=== PATIENT | female | born 1985 | race Two or more races ===

== ENCOUNTER 2025-03-07 09:12 | Day surgery (SDC) | payer MEDICAID ==
[2025-02-27 11:52] LABS: Hematocrit 36.2 % (36.0-46.0); Hemoglobin 12.0 g/dL (12.2-16.2); Mean Corpuscular Hemoglobin 28.7 pg (28.0-32.0); Mean Corpuscular Volume 87.1 fL (80.0-100.0); Nucleated Red Blood Cells % 0.0 %
[2025-02-27 11:58] LABS: Urine Protein, UAD Negative (Negative)
[2025-02-27 12:11] LABS: INR 1.03 (0.9-1.15); Partial Thromboplastin Time 29.2 SEC (24.5-34.5); Prothrombin Time 10.9 sec (9.3-11.8)
[2025-02-27 12:14] LABS: Alanine Aminotransferase 14 U/L (7-40); Albumin 4.3 g/dL (3.2-4.8); Alkaline Phosphatase 73 U/L (46-116); Anion Gap 8 (5-15); BUN/Creatinine Ratio 13.3 (10.0-20.0); Calcium 9.2 mg/dL (8.7-10.4); Carbon Dioxide 28 mmol/L (20-31); Chloride 106 mmol/L (98-107); Glucose 89 mg/dL (74-106); Potassium 4.6 mmol/L (3.5-5.1); Sodium 142 mmol/L (136-145); Total Protein 7.2 g/dL (5.7-8.2)
[2025-02-27 12:15] LABS: Bilirubin, Total 0.3 mg/dL (0.2-1.0)
[2025-02-27 12:22] LABS: Blood Urea Nitrogen 8 mg/dL (9-23)
[~2025-03-07] VITALS: Ht 172.7 cm; Wt 90.7 kg
[~2025-03-07 09:12] MED LIST: SEMA1.7I SC; SERT25TA28 PO
[2025-03-07] MEDS ORDERED: PROPOFOL 10 MG/ML 20 ML IV ONE (09:13)
[2025-03-07] MEDS ORDERED: ceFAZolin 2 GM/D5W50ml 50 ML IV ONE (09:57)
[2025-03-07] MEDS ORDERED: fentaNYL CITRATE 100 MCG/2 ML VL ONE (10:30)
[2025-03-07] MEDS ORDERED: ONDANSETRON HCL 4 MG/2 ML VIAL ONE (10:37)
[2025-03-07] MEDS: LIDOCAINE 1% HCL (LOCAL ANESTH.) INJ 20ML MDV ONE (10:50)
[2025-03-07 10:56] VITALS: PULSE 72; RESP 14; TEMP 97.8; O2SAT 97
--- NOTE | 2025-03-07 10:58 | DVHOP2 ---
Operative Report - 2 Report Details Date: 03/07/25 Preop Diagnosis: 1. Left foot neuroma 2. Left foot metatarsalgia 3. Left foot pain Postop Diagnosis: Same as preop Surgeon: Silas Garcia MD Anesthesiologist: See anesthesia Anesthesia: General Consent: The patient was informed of the risks and benefits of the procedure. These include but are not limited to complications of anesthesia, postoperative infection, incomplete relief of symptoms, recurrence of symptoms, damage to blood vessels, nerves and tendons, deep venous thrombosis, pulmonary embolism and possible need for repeat surgery in the future. Complications: None Estimated Blood Loss: Minimal Fluids: See anesthesia Findings: Consistent with diagnosis Indications for Surgery: Worsening foot pain Name of Procedure Performed 1. Left foot neuroma excision (82872) 2. Left foot nerve decompression (13624) Procedure Details Procedure Details: PRE-PROCEDURE INFORMATION: In the pre-op holding area, the extremity to be operated on was clearly marked and the patient verified correct laterality of the marking. The patient was transferred to the OR table and placed in a supine position. A timeout was performed in which identification of the correct patient, procedure, location, and materials was done. The left foot and leg were prepped and draped in normal sterile fashion. The foot and leg were exsanguinated and ankle Esmarch was applied DESCRIPTION OF PROCEDURE: Attention was directed to the right foot where linear incision was made at the dorsal 1st interspace. Care was taken throughout the dissection to avoid damage to the neurovascular and tendinous structures. Hemostasis was achieved via electrocautery. The incision was deepened through blunt dissection to the level of the deep transverse intermetatarsal ligament. Once the ligament was visualized it was transected using dissecting scissors, effectively decompressing the underlying plantar nerve. 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 The nerve was dissected proximally and was transected. The neuroma was removed and sent to pathology. All surgical wounds were irrigated copiously with saline and closed in layers with the aforementioned suture material. A dry sterile dressing was placed on the surgical extremity. The patient was placed in a postop shoe POSTOPERATIVE INFORMATION: The patient tolerated the above noted procedure and anesthesia well and was transferred to the PACU with vital signs stable, and vascular status intact with capillary refill intact to all digits. Postoperative instructions reviewed in detail with the patient with written instructions provided. Patient will return to clinic in approximately 10-14 days for first postoperative visit. Patient has the number of the clinic and was instructed to call prior to that time should any problems, questions, or concerns arise. Condition Good Disposition Home Visit Coding Podiatry Date of Service if different f: Mar 07, 2025 Billing Provider: SILAS GARCIA DPM Podiatry Common Visit Codes: PROCEDURE ONLY SILAS GARCIA DPM Mar 07, 2025 10:58
[2025-03-07 11:06] VITALS: PULSE 75; RESP 18; O2SAT 99
[2025-03-07] MEDS ORDERED: HYDROmorphone HCL 2 MG/ML VL/or syr ONE (11:14)
[2025-03-07] MEDS: HYDROmorphone HCL 2 MG/ML VL/or syr IV PRN (11:15)
[2025-03-07] MEDS: ACETAMINOPHEN IV 1000 MG/100ML (10MG/ML) IV PRN (11:28)
[2025-03-07] MEDS: ONDANSETRON HCL 4 MG/2 ML VIAL IV PRN (11:30)
[2025-03-07] MEDS: MEPERIDINE HCL (25 MG/ML) 1ML VIAL IV PRN (12:06)
[2025-03-07 12:26] VITALS: BP 116/55; PULSE 73; RESP 13; O2SAT 99
== END 2025-03-07 12:36 | disposition home or self-care (01) ==
LOC: SUR 09:12
PROVIDERS: ATTEND Podiatrist
DX: G57.62 Lesion of plantar nerve, left lower limb (principal); Z79.899 Other long term (current) drug therapy; Z98.891 History of uterine scar from previous surgery; Z98.890 Other specified postprocedural states
CPT/HCPCS: 28080; 36415; 80053; 81001; 81025; 84702; 85025; 85610; 85730; 88304; A4649; A6450; J0690; J1100; J1171; J2003; J2175; J2405; J2704; J3010; J0131